=== PATIENT | male | born 1980 | race Caucasian/White ===

== ENCOUNTER 2018-04-05 13:17 | Emergency (ER) | payer MEDICAID ==
[2018-04-05 13:28] VITALS: BP 141/98
--- NOTE | 2018-04-05 13:41 | ED Physician Documentation ---
PD HPI HEADACHE - Stated complaint Stated Complaint: FACIAL SWELLING/MOUTH PX - Chief complaint Chief Complaint: Heent - History obtained from History obtained from: Patient - History of Present Illness Timing - onset: Other (Facial swelling and dental pain overlying the left mandible for about a week. He started Bactrim a few days ago which has not been effective. No fevers.) Review of Systems Constitutional: denies: Fever, Chills Nose: denies: Rhinorrhea / runny nose Throat: reports: Dental pain / toothache. denies: Sore throat Cardiac: denies: Chest pain / pressure, Palpitations Respiratory: denies: Dyspnea PD PAST MEDICAL HISTORY - Past Medical History Respiratory: Asthma Psych: Depression, Anxiety - Past Surgical History General: Appendectomy - Present Medications Home Medications: Ambulatory Orders Medication Instructions Recorded Confirmed Clindamycin HCl [Clindamycin 300MG 300 mg PO Q6H #40 capsule 04/05/18 CAP] Hydrocodone/Acetaminophen 1 - 2 each PO Q6H PRN #14 tablet 04/05/18 [Hydrocodon-Acetaminophen 5-325] Ibuprofen [Ibu] 800 04/05/18 Ondansetron Odt [Zofran] 4 mg TL Q6H PRN #10 tablet 04/05/18 Sertraline [Zoloft] 50 04/05/18 Sulfamethox/Trimeth 800/160 1 04/05/18 [Bactrim Ds] Zolpidem Tartrate [Ambien] 10 04/05/18 - Allergies Allergies/Adverse Reactions: Allergies Allergy/AdvReac Type Severity Reaction Status Date / Time No Known Drug Allergies Allergy Verified 04/05/18 13:28 - Social History Does the pt smoke?: Yes Smoking Status: Current every day smoker Does the pt drink ETOH?: Yes Does the pt have substance abuse?: No PD ED PE NORMAL - Vitals Vital signs reviewed: Yes - General General: Alert and oriented X 3, No acute distress - HEENT HEENT: Other (A few cavities and is tender over both the last molars on the left mandible and maxilla. There is no trismus but he does have mild facial swelling. No sublingual edema.) - Neck Neck: Supple, no meningeal sign, No adenopathy - Neuro Neuro: Alert and oriented X 3, Normal speech Results - Vitals Vitals: Vital Signs - 24 hr 04/05/18 13:25 Temperature 36.9 C Heart Rate 69 Respiratory 18 Rate Blood Pressure 141/98 H O2 Saturation 97 Oxygen O2 Source Room air Departure - Departure Disposition: 01 Home, Self Care Clinical Impression: Pain due to dental caries Condition: Good Record reviewed to determine appropriate education?: Yes Instructions: ED Tooth Pain Prescriptions: Clindamycin HCl [Clindamycin 300MG CAP] 300 mg PO Q6H #40 capsule Hydrocodone/Acetaminophen [Hydrocodon-Acetaminophen 5-325] 1 - 2 each PO Q6H PRN #14 tablet PRN Reason: pain Ondansetron Odt [Zofran] 4 mg TL Q6H PRN #10 tablet PRN Reason: Nausea / Vomiting Comments: It is very important that you follow-up with a dentist. When it comes to dental problems like yours, the emergency department can only offer a short-term solution to your long-term problem. A couple of low cost options for dental care include: [facility] in [place], calls [phone] for an appointment Or [facility] in [place], call [phone] for an appointment. Your blood pressure was elevated today on check into the emergency department. This does not mean that you have hypertension, it is a common phenomenon to come to the emergency department and have elevated blood pressure. I recommend that you see your primary care physician within the week to have it rechecked when you are feeling better. Do not drink or drive while taking narcotic pain medication. Note that many narcotic pain relievers also contain Tylenol/acetaminophen. Please ensure that your total dose of acetaminophen from all sources does not exceed 3 g (3000 mg) per day. You may get constipated while on this medication. Take a stool softener such as Colace twice a day while you are on it. Also add an [id number] laxative such as senna or MiraLAX on any day that you do not have a bowel movement. If you received a narcotic pain medication or sedative while in the emergency department, do not drive for the next 24 hours.
== END 2018-04-05 13:50 | disposition home or self-care (01) ==
LOC: ED 13:17
DX: K02.9 Dental caries, unspecified (principal); R03.0 Elevated blood-pressure reading, without diagnosis of hypertension; F17.200 Nicotine dependence, unspecified, uncomplicated
CPT/HCPCS: 99283

== ENCOUNTER 2018-09-13 14:22 | Outpatient (CLI) | payer MEDICAID ==
[2018-09-13 19:09] LABS: BASOPHILS % (AUTO) 0.4 %; EOSINOPHILS # (AUTO) 0.2 10^3/uL (0.0-0.7); EOSINOPHILS % (AUTO) 4.2 %; HGB - HEMOGLOBIN 16.6 g/dL (14.0-18.0); LYMPHOCYTES # (AUTO) 1.1 10^3/uL (1.5-3.5); LYMPHOCYTES % (AUTO) 21.2 %; MEAN CORPUSCULAR HEMOGLOBIN 30.2 pg (27.0-31.0); MEAN CORPUSCULAR HGB CONC 34.7 g/dL (32.0-36.0); MEAN CORPUSCULAR VOLUME 86.8 fL (80.0-94.0); MEAN PLATELET VOLUME 7.7 fL (7.4-11.4); MONOCYTES # (AUTO) 0.4 10^3/uL (0.0-1.0); NEUTROPHILS # (AUTO) 3.4 10^3/uL (1.5-6.6); NEUTROPHILS % (AUTO) 66.2 %; PLT - PLATELET COUNT 223 10^3/uL (130-450); RED CELL DISTRIBUTION WIDTH 12.9 % (12.0-15.0); WHITE BLOOD COUNT 5.2 x10^3/uL (4.8-10.8)
[2018-09-13 19:12] LABS: BUN - BLOOD UREA NITROGEN 13 mg/dL (6-20); CALCIUM 8.7 mg/dL (8.5-10.3); CARBON DIOXIDE - CO2 27 mmol/L (21-32); CHLORIDE 103 mmol/L (101-111); CHOL/HDL RATIO 5.3 (<5.0); CHOLESTEROL 197 mg/dL; CREATININE 0.9 mg/dL (0.6-1.2); GFR - MDRD 95 (>89); GLUCOSE 89 mg/dL (70-100); HDL CHOLESTEROL 37 mg/dL; LDL CHOLESTEROL,CALCULATED 82 mg/dL; LDL/HDL RATIO 2.2 (<3.6); SODIUM 138 mmol/L (135-145); VLDL CHOLESTEROL 78 mg/dL
== END 2018-09-13 23:59 | disposition home or self-care (01) ==
LOC: LAB.N 14:22
PROVIDERS: ATTEND Physician Assistant Medical
DX: J30.2 Other seasonal allergic rhinitis (principal); F41.8 Other specified anxiety disorders; J45.909 Unspecified asthma, uncomplicated; Z72.0 Tobacco use; G47.00 Insomnia, unspecified
CPT/HCPCS: 36415; 80048; 80061; 83721; 84443; 85025

== ENCOUNTER 2018-10-14 15:24 | Outpatient (CLI) | payer MEDICAID | END 2018-10-14 15:25 | disposition home or self-care (01) | LOC: SC 15:24 | PROVIDERS: ATTEND Internal Medicine Pulmonary Disease | DX: G47.10 Hypersomnia, unspecified (principal); G47.8 Other sleep disorders; R06.83 Snoring; G47.26 Circadian rhythm sleep disorder, shift work type | CPT/HCPCS: 99203; 99212 ==

== ENCOUNTER 2018-10-21 15:07 | Outpatient (CLI) | payer MEDICAID ==
[2018-10-21 19:07] LABS: CHOL/HDL RATIO 4.4 (<5.0); CHOLESTEROL 183 mg/dL; HDL CHOLESTEROL 42 mg/dL; LDL CHOLESTEROL,CALCULATED 115 mg/dL; LDL/HDL RATIO 2.7 (<3.6); VLDL CHOLESTEROL 26 mg/dL
== END 2018-10-21 23:59 | disposition home or self-care (01) ==
LOC: LAB.N 15:07
PROVIDERS: ATTEND Physician Assistant Medical
DX: E78.1 Pure hyperglyceridemia (principal)
CPT/HCPCS: 36415; 80061; 83721

== ENCOUNTER 2019-10-15 20:53 | Emergency (ER) | payer MEDICAID ==
--- NOTE | 2019-10-15 21:07 | ED Physician Documentation ---
PD HPI DYSPNEA - Stated complaint Stated Complaint: SHORT OF BREATH - Chief complaint Chief Complaint: Resp - History obtained from History obtained from: Patient - History of Present Illness Timing - onset: How many months ago (2) Timing - onset during: Light activity Timing - duration: Months (2) Timing - details: Gradual onset, Still present (more consistent the past several days), Waxing and waning Inciting event(s): No: Out of meds (taking Albuterol periodically without notable improvement with 1 or 2 puffs), URI (sine clear congestion c/w allergies.), Allergic rxn/anaphylaxis Improved by: Rest Worsened by: Exertion Associated symptoms: Wheezing. No: Fever, Cough, Hemoptysis, Chest pain / discomfort, Bilateral edema Similar symptoms before: Diagnosis (asthma) Recently seen: Not recently seen, Other (he is concerned about pneumonia and particularly COVID.) Review of Systems Constitutional: reports: Fatigue. denies: Fever, Chills Nose: denies: Rhinorrhea / runny nose, Congestion Throat: denies: Sore throat Respiratory: reports: Dyspnea, Cough, Wheezing GI: denies: Nausea, Vomiting, Diarrhea Musculoskeletal: denies: Extremity swelling Neurologic: denies: Generalized weakness, Near syncope Endocrine: denies: Weight loss PD PAST MEDICAL HISTORY - Past Medical History Respiratory: Asthma Psych: Depression, Anxiety - Past Surgical History General: Appendectomy - Present Medications Home Medications: Ambulatory Orders Medication Instructions Recorded Confirmed Clindamycin HCl [Clindamycin 300MG 300 mg PO Q6H #40 capsule 04/05/18 CAP] Hydrocodone/Acetaminophen 1 - 2 each PO Q6H PRN #14 tablet 04/05/18 [Hydrocodon-Acetaminophen 5-325] Ibuprofen [Ibu] 800 04/05/18 Ondansetron Odt [Zofran] 4 mg TL Q6H PRN #10 tablet 04/05/18 Sertraline [Zoloft] 50 04/05/18 Sulfamethox/Trimeth 800/160 1 04/05/18 [Bactrim Ds] Zolpidem Tartrate [Ambien] 10 04/05/18 Albuterol Sulfate [Albuterol 2 puffs IH QID #1 hfa.aer.ad 10/15/19 Sulfate Hfa] Cetirizine [ZyrTEC] 10 mg PO DAILY #15 tablet 10/15/19 dexAMETHasone [Decadron] 4 mg PO DAILY #7 tablet 10/15/19 - Allergies Allergies/Adverse Reactions: Allergies Allergy/AdvReac Type Severity Reaction Status Date / Time No Known Drug Allergies Allergy Verified 10/15/19 21:00 - Social History Does the pt smoke?: Yes Smoking Status: Current every day smoker Does the pt drink ETOH?: Yes Does the pt have substance abuse?: No PD ED PE NORMAL - Vitals Vital signs reviewed: Yes - General General: Alert and oriented X 3, No acute distress, Well developed/nourished - HEENT HEENT: Moist mucous membranes, Pharynx benign - Neck Neck: Supple, no meningeal sign, No adenopathy - Cardiac Cardiac: RRR, No murmur - Respiratory Respiratory: No: Clear bilaterally (mild decreased exp phase. No overt wheezing. No coarse sounds. ) - Abdomen Abdomen: Soft, Non tender - Back Back: No CVA TTP - Derm Derm: Normal color, Warm and dry Results - Vitals Vitals: Vital Signs - 24 hr 10/15/19 10/15/19 20:57 23:14 Temperature 36.9 C Heart Rate 78 80 Respiratory 16 16 Rate Blood Pressure 170/78 H 145/80 H O2 Saturation 98 99 Oxygen O2 Source Room air - Labs Labs: Laboratory Tests 10/15/19 10/15/19 10/15/19 21:56 21:56 21:56 WBC 5.0 RBC 4.92 Hgb 13.2 L Hct 38.8 L MCV 78.9 L MCH 26.8 L MCHC 34.0 RDW 12.4 Plt Count 199 MPV 8.9 Neut # (Auto) 3.6 Lymph # (Auto) 0.9 L [place] # (Auto) 0.4 Eos # (Auto) 0.1 Baso # (Auto) 0.0 Absolute Nucleated RBC 0.00 Nucleated RBC % 0.0 Sodium 139 Potassium 4.0 Chloride 107 Carbon Dioxide 24 Anion Gap 8.0 BUN 10 Creatinine 1.2 Estimated GFR (MDRD) 68 L Glucose 103 H Calcium 8.5 Total Bilirubin 0.6 AST 18 ALT 17 Alkaline Phosphatase 62 Troponin I High Sens 2.4 B-Natriuretic Peptide Total Protein 6.9 Albumin 4.1 Globulin 2.8 Albumin/Globulin Ratio 1.5 Lipase 42 10/15/19 21:56 WBC RBC Hgb Hct MCV MCH MCHC RDW Plt Count MPV Neut # (Auto) Lymph # (Auto) [place] # (Auto) Eos # (Auto) Baso # (Auto) Absolute Nucleated RBC Nucleated RBC % Sodium Potassium Chloride Carbon Dioxide Anion Gap BUN Creatinine Estimated GFR (MDRD) Glucose Calcium Total Bilirubin AST ALT Alkaline Phosphatase Troponin I High Sens B-Natriuretic Peptide 9 Total Protein Albumin Globulin Albumin/Globulin Ratio Lipase - Rads (name of study) chest xray Radiology: Prelim report reviewed (no acute process), See rad report PD MEDICAL DECISION MAKING - ED course Complexity details: considered differential (likely exac of asthma but he is having some general weakness and dyspnea at rest too, so can check CBC, lytes, BNP to ensure not other cause. ), d/w patient Departure - Departure Disposition: Home, Self Care Clinical Impression: Dyspnea Qualifiers: Dyspnea type: shortness of breath Qualified Code(s): R06.02 - Shortness of breath Asthma Qualifiers: Asthma severity: mild Asthma persistence: intermittent Asthma complication type: with acute exacerbation Qualified Code(s): J45.21 - Mild intermittent asthma with (acute) exacerbation Condition: Stable Record reviewed to determine appropriate education?: Yes Instructions: ED Reactive Airway Disease, ED Dyspnea Shortness of Breath Prescriptions: Albuterol Sulfate [Albuterol Sulfate Hfa] 2 puffs IH QID #1 hfa.aer.ad dexAMETHasone [Decadron] 4 mg PO DAILY #7 tablet Cetirizine [ZyrTEC] 10 mg PO DAILY #15 tablet Comments: Your chest x-ray and blood tests and EKG appear normal. No signs of pneumonia, anemia or heart failure. I presume this is a environmental allergies and exacerbation of your asthma. Use the albuterol inhaler 2 puffs to 3 puffs 4 times a day for the next several days to week and then as needed. Also take Decadron oral steroid daily for a week to decrease inflammation of the airways. Cetirizine antihistamine daily for allergies. Recheck if not improving well over the next several days return sooner if worsening. Discharge Date/Time: 10/15/19 23:15
[2019-10-15] MEDS ORDERED: CETIRIZINE 10 MG TABLET PO STA (21:48)
[2019-10-15] MEDS ORDERED: CHERRY SYRUP 10 ML UDC PO ONE (21:48)
[2019-10-15] MEDS ORDERED: DEXAMETHASONE 10 MG/ML VIAL PO STA (21:48)
[2019-10-15] MEDS ORDERED: diphenhydrAMINE 25 MG CAPSULE PO STA (21:48)
[2019-10-15 21:59] LABS: BASOPHILS % (AUTO) 0.4 %; EOSINOPHILS # (AUTO) 0.1 10^3/uL (0.0-0.7); EOSINOPHILS % (AUTO) 2.6 %; HGB - HEMOGLOBIN 13.2 g/dL (14.0-18.0); LYMPHOCYTES # (AUTO) 0.9 10^3/uL (1.5-3.5); LYMPHOCYTES % (AUTO) 18.7 %; MEAN CORPUSCULAR HEMOGLOBIN 26.8 pg (27.0-31.0); MEAN CORPUSCULAR VOLUME 78.9 fL (80.0-94.0); MEAN PLATELET VOLUME 8.9 fL (7.4-11.4); MONOCYTES # (AUTO) 0.4 10^3/uL (0.0-1.0); MONOCYTES % (AUTO) 7.5 %; NEUTROPHILS # (AUTO) 3.6 10^3/uL (1.5-6.6); NEUTROPHILS % (AUTO) 70.4 %; PLT - PLATELET COUNT 199 10^3/uL (130-450); RED BLOOD COUNT 4.92 10^6/uL (4.70-6.10); RED CELL DISTRIBUTION WIDTH 12.4 % (12.0-15.0)
[2019-10-15 22:16] LABS: ALBUMIN 4.1 g/dL (3.2-5.5); ALBUMIN/GLOBULIN RATIO 1.5 (1.0-2.2); BILIRUBIN,TOTAL 0.6 mg/dL (0.2-1.0); CALCIUM 8.5 mg/dL (8.5-10.3); CREATININE 1.2 mg/dL (0.6-1.2); TOTAL PROTEIN 6.9 g/dL (6.7-8.2)
[2019-10-15 23:15] VITALS: BP 145/80
--- NOTE | 2019-10-16 08:45 | XRAY Report ---
PROCEDURE: Chest 1 View X-Ray INDICATIONS: dyspnea/exertional tightness TECHNIQUE: One view of the chest was acquired. COMPARISON: None FINDINGS: Surgical changes and devices: None. Lungs and pleura: No pleural effusions or pneumothorax. Lungs are clear. Mediastinum: Mediastinal contours appear normal. Heart size is normal. Bones and chest wall: No suspicious bony lesions. Overlying soft tissues appear unremarkable. IMPRESSION: 1. No acute pulmonary process. Reviewed by: Amy Smyth MD on 10/16/2019 8:43 AM PDT Approved by: Amy Smyth MD on 10/16/2019 8:43 AM PDT Station ID: [id number]
== END 2019-10-15 23:15 | disposition home or self-care (01) ==
LOC: ED 20:53
DX: J45.21 Mild intermittent asthma with (acute) exacerbation (principal); F17.200 Nicotine dependence, unspecified, uncomplicated
CPT/HCPCS: 36415; 71045; 80053; 83690; 83880; 84484; 85025; 99284; A9270

== ENCOUNTER 2021-06-26 14:01 | Observation (INO) | payer MEDICAID ==
[2021-06-26 14:34] LABS: BASOPHILS % (AUTO) 0.4 %; EOSINOPHILS # (AUTO) 0.1 10^3/uL (0.0-0.7); HCT - HEMATOCRIT 25.8 % (42.0-52.0); LYMPHOCYTES # (AUTO) 0.8 10^3/uL (1.5-3.5); LYMPHOCYTES % (AUTO) 16.9 %; MEAN CORPUSCULAR HEMOGLOBIN 16.9 pg (27.0-31.0); MEAN CORPUSCULAR HGB CONC 26.7 g/dL (32.0-36.0); MEAN CORPUSCULAR VOLUME 63.1 fL (80.0-94.0); MEAN PLATELET VOLUME 8.3 fL (7.4-11.4); MONOCYTES # (AUTO) 0.4 10^3/uL (0.0-1.0); MONOCYTES % (AUTO) 9.1 %; NEUTROPHILS # (AUTO) 3.2 10^3/uL (1.5-6.6); NEUTROPHILS % (AUTO) 71.2 %; PLT - PLATELET COUNT 214 10^3/uL (130-450); RED BLOOD COUNT 4.09 10^6/uL (4.70-6.10); RED CELL DISTRIBUTION WIDTH 17.9 % (12.0-15.0); WHITE BLOOD COUNT 4.5 x10^3/uL (4.8-10.8)
[2021-06-26 14:38] LABS: HGB - HEMOGLOBIN 6.9 g/dL (14.0-18.0)
--- NOTE | 2021-06-26 14:45 | XRAY Report ---
PROCEDURE: Chest 1 View X-Ray INDICATIONS: chest pain TECHNIQUE: One view of the chest was acquired. COMPARISON: 10/15/2019 FINDINGS: Surgical changes and devices: None. Lungs and pleura: No pleural effusions or pneumothorax. Lungs are clear. Mediastinum: Mediastinal contours appear normal. Heart size is normal. Bones and chest wall: No suspicious bony lesions. Overlying soft tissues appear unremarkable. IMPRESSION: No evidence acute pulmonary process. Reviewed by: Kervin Monahan MD on 06/26/2021 1:43 PM [facility] Approved by: Kervin Monahan MD on 06/26/2021 1:43 PM [facility] Station ID: [id number]
[2021-06-26 14:49] LABS: ALBUMIN 4.5 g/dL (3.2-5.5); ALBUMIN/GLOBULIN RATIO 1.5 (1.0-2.2); BILIRUBIN,TOTAL 0.8 mg/dL (0.2-1.0); CALCIUM 8.8 mg/dL (8.5-10.3); CREATININE 1.1 mg/dL (0.6-1.2); POTASSIUM 3.9 mmol/L (3.5-5.0); TOTAL PROTEIN 7.5 g/dL (6.7-8.2)
--- NOTE | 2021-06-26 14:50 | ED Physician Documentation ---
PD HPI DYSPNEA - Stated complaint Stated Complaint: CHEST PX, SOA - Chief complaint Chief Complaint: Cardiac - History obtained from History obtained from: Patient - History of Present Illness Timing - onset: How many weeks ago (3) Timing - onset during: Light activity Timing - duration: Weeks (3) Timing - details: Gradual onset, Still present Inciting event(s): No: Out of meds, URI, Allergic rxn/anaphylaxis, Exercise, Exposure (ie smoke), FB / choking, Immobilization/travel, Emotional event Improved by: Rest Worsened by: Exertion Associated symptoms: Chest pain / discomfort. No: Fever, Cough, Hemoptysis, Wheezing, Palpitations, Diaphoresis, Bilateral edema, Unilateral edema Similar symptoms before: Has not had sx before Recently seen: Not recently seen - Additional information Additional information: Previously well 41-year-old male reports the emergency department that he has developed exertional dyspnea over the past month. He indicates that he is having trouble even taking garbage out. He notes he is short of breath and has to sit and rest for a bit before he can go on again. He states this happens each and every time that he exerts himself. He denies any wheezing associated with this and he has not been sick. He does have a history of asthma and he did not find that his inhaler helped all that much. He denies any excessive confinement or swelling to his legs. He has not had this issue previously. Later in the visit the patient indicates that about a month ago he developed some significant bleeding from hemorrhoids that filled the toilet over and over for about a week. He states that he got lightheaded and dizzy associated with that. Since then he has continued to have periodic bouts of blood per rectum. Review of Systems Constitutional: reports: Fatigue. denies: Fever, Chills, Myalgias Eyes: denies: Decreased vision Ears: denies: Ear pain Nose: denies: Rhinorrhea / runny nose, Congestion Throat: denies: Sore throat Cardiac: reports: Chest pain / pressure. denies: Palpitations, Pedal edema, Calf pain Respiratory: reports: Dyspnea. denies: Cough, Wheezing GI: reports: Constipation, Bloody / black stool. denies: Abdominal Pain, Nausea, Vomiting, Diarrhea : denies: Dysuria, Frequency Skin: denies: Rash Musculoskeletal: denies: Neck pain, Back pain, Extremity pain PD PAST MEDICAL HISTORY - Past Medical History Past Medical History: Yes Respiratory: Asthma Psych: Depression, Anxiety - Past Surgical History Past Surgical History: Yes General: Appendectomy - Present Medications Home Medications: Ambulatory Orders Medication Instructions Recorded Confirmed Sertraline [Zoloft] 50 mg PO DAILY 04/05/18 06/26/21 Albuterol Sulfate [Albuterol 2 puffs INH QID 06/26/21 06/26/21 Sulfate Hfa] - Allergies Allergies/Adverse Reactions: Allergies Allergy/AdvReac Type Severity Reaction Status Date / Time No Known Drug Allergies Allergy Verified 06/26/21 14:07 - Social History Does the pt smoke?: Yes Smoking Status: Current every day smoker Does the pt drink ETOH?: Yes Does the pt have substance abuse?: No - Immunizations Immunizations are current?: Yes - POLST Patient has POLST: No PD ED PE NORMAL - Vitals Vital signs reviewed: Yes (hypertensive ) - General General: Alert and oriented X 3, No acute distress, Well developed/nourished - HEENT HEENT: Atraumatic, PERRL, EOMI, Other (pale lips are appreciated after the patient removes his mask. ) - Neck Neck: Supple, no meningeal sign, No bony TTP - Cardiac Cardiac: RRR, No murmur, Other (heart rate is rapid over 90 at rest. ) - Respiratory Respiratory: No respiratory distress, Clear bilaterally, Other (no chest wall tenderness) - Abdomen Abdomen: Soft, Non tender - Rectal Rectal: Other (Large external hemorrhoidal tags are present without inflammation or fullness. Internal hemorrhoids are present and are full and nontender. There is no blood or stool in the vault.) - Back Back: No CVA TTP, No spinal TTP - Derm Derm: Normal color, Warm and dry, No rash - Extremities Extremities: No deformity, No edema - Neuro Neuro: Alert and oriented X 3, front desk administrator 2-12 intact, No motor deficit, No sensory deficit, Normal speech Eye Opening: Spontaneous Motor: Obeys Commands Verbal: Oriented GCS Score: 15 - Psych Psych: Normal mood, Normal affect Results - Vitals Vitals: Vital Signs - 24 hr 06/26/21 14:04 Temperature 36.7 C Heart Rate 95 Respiratory 16 Rate Blood Pressure 152/66 H O2 Saturation 100 Oxygen O2 Source Room air - Labs Labs: Laboratory Tests 06/26/21 06/26/21 06/26/21 14:26 14:26 14:26 WBC 4.5 L RBC 4.09 L Hgb 6.9 L* Hct 25.8 L MCV 63.1 L MCH 16.9 L MCHC 26.7 L RDW 17.9 H Plt Count 214 MPV 8.3 Neut # (Auto) 3.2 Lymph # (Auto) 0.8 L [place] # (Auto) 0.4 Eos # (Auto) 0.1 Baso # (Auto) 0.0 Absolute Nucleated RBC 0.00 Nucleated RBC % 0.0 D-Dimer 231.9 Sodium 137 Potassium 3.9 Chloride 103 Carbon Dioxide 25 Anion Gap 9.0 BUN 14 Creatinine 1.1 Estimated GFR (MDRD) 75 L Glucose 113 H Calcium 8.8 Total Bilirubin 0.8 AST 16 ALT 19 Alkaline Phosphatase 69 Troponin I High Sens B-Natriuretic Peptide Total Protein 7.5 Albumin 4.5 Globulin 3.0 Albumin/Globulin Ratio 1.5 Lipase 39 06/26/21 06/26/21 14:26 14:26 WBC RBC Hgb Hct MCV MCH MCHC RDW Plt Count MPV Neut # (Auto) Lymph # (Auto) [place] # (Auto) Eos # (Auto) Baso # (Auto) Absolute Nucleated RBC Nucleated RBC % D-Dimer Sodium Potassium Chloride Carbon Dioxide Anion Gap BUN Creatinine Estimated GFR (MDRD) Glucose Calcium Total Bilirubin AST ALT Alkaline Phosphatase Troponin I High Sens 3.6 B-Natriuretic Peptide 18 Total Protein Albumin Globulin Albumin/Globulin Ratio Lipase - Rads (name of study) chest Radiology: Prelim report reviewed (Impression: No evident acute pulmonary process.), EMP read indepedently, See rad report PD MEDICAL DECISION MAKING - ED course Complexity details: reviewed results, re-evaluated patient, considered differential, d/w patient ED course: 41-year-old male who presents to the emergency department with exertional dyspnea is found to be significantly anemic on evaluation of his blood counts. He does have a microcytic anemia with an elevated RDW consistent with both acute and chronic bleeding. On examination he has full internal hemorrhoids and there is no blood or stool in the vault. The patient has symptomatic anemia with a hemoglobin of 6.9 and transfusion is indicated. He has ongoing blood loss with a suspected etiology as hemorrhoids. The amount of blood he has lost is significant and the etiology at this point is not known. Departure - Departure Disposition: ED Place in Observation Clinical Impression: Symptomatic anemia GI bleeding Qualifiers: GI bleed type/associated pathology: anorectal hemorrhage Qualified Code(s): K62.5 - Hemorrhage of anus and rectum
[2021-06-26] MEDS ORDERED: SODIUM CHLORIDE FLUSH 0.9% 10 ML SYRINGE IVP PRN (15:45)
[2021-06-26] MEDS ORDERED: ONDANSETRON ODT 4 MG TABLET TL PRN (15:45)
[2021-06-26] MEDS ORDERED: ACETAMINOPHEN 325 MG TABLET PO PRN (15:45)
[2021-06-26] MEDS ORDERED: PROCHLORPERAZINE 10 MG/2 ML VIAL IVP PRN (15:45)
[2021-06-26] MEDS ORDERED: oxyCODONE 5 MG TABLET PO PRN (15:45)
[2021-06-26] MEDS ORDERED: ONDANSETRON 4 MG/2 ML VIAL IVP PRN (15:45)
--- NOTE | 2021-06-26 15:55 | HISTORY & PHYSICAL EXAMINATION ---
Chief Complaint - Chief Complaint Chief Complaint: shortness of breath History of Present Illness - Admitted From Admitted From:: home via ER - History Obtained From Records Reviewed: [facility] History obtained from: patient and Dr. Silva Exam Limitations: none - History of Present Illness HPI Comment/Other: This is a 41-year-old white male who has been seen by Dr. Michelle Whatley for asthma and anxiety once that presents to the emergency room with severe dyspnea on exertion. He said has been getting steadily worse over the last few weeks but over the last week he has maxi dyspnea walking just across the room. There is no antecedent URI complaints. No chest congestion. No wheezing. Inhalers are not making it better. He was seen by the emergency room provider and blood pressure is 152/66. Heart rate is 95. He is 100% on room air. Has a negative physical exam. When the lab work came back the patient's hemoglobin is 6.9. At that point the per emergency room provider spoke to the patient again and the patient shared with the ER provider that he filled the toilet bowl with blood about a month ago. He did call his PCP 05/17/21 and told them he was having rectal bleeding for a week. they advised the [facility] but he did not have the insurance needed so he couldn't go to the [facility]. Advised to go to the ER that day but by then he was so frustrated and disgusted with trying to access our health care system he gave up. In looking at his past labs, he had a hemoglobin of 16.6 in August 2018. He was seen in the emergency room for shortness of breath and asthma in September 2019 and his hemoglobin was 13.2. He was last seen by his primary care provider in December 2019. He does not have a history of abdominal pain, fever, sweats, diarrhea (bloody or otherwise). He has no history of weight loss. In July 2018 he was 186 pounds. By December 2019 he was 216 pounds. He denies any epigastric discomfort. He does not take any nonsteroidals on a regular basis. He denies any alcohol abuse. There is no family history of inflammatory bowel disease or peptic ulcer disease. He does tell me that he has been having intermittent bright red blood per rectum that was painless for close to 15 years. He initially said 20 but then he corrected himself and said more like 15. He is always told himself that it was "hemorrhoids" so he never felt like he needed to be seen for this. Because of his panic disorder he will talk himself into dire diagnoses of bleeding ulcers, cancer, and so he would not want to come in. The patient is now placed in observation for transfusion of blood. At this [facility] we do not have surgical services installation and repair technician for the OR since we are on divert for OR cases. As such the patient will be transfused, and we will refer him to outpatient work-up for upper and lower endoscopy. History - Past Medical History Respiratory: reports: Asthma, Other (snoring and insomnia. Sleep study Referral September 2018. Ins won't pay so no followup) GI: reports: Other (bloody stool for 15 years) HEENT: reports: Other (Seasonal allergies with his asthma) Psych: reports: Depression, Anxiety - Past Surgical History General: reports: Appendectomy (2000) HEENT: reports: Other (Tooth extraction due to infection) - Family & Social History Family History Comment/Other: Mom is alive and has a history of coronary artery disease. She had a heart attack in her 50s. Also has SLE. Dad is alive and healthy. May have anxiety. Siblings are healthy x brother w PTSD, anxiety, depression. He does not have any children Living arrangement: At home Living Situation: With spouse/s.o. Social History Notes: He is a former smoker. 1/2-1 ppd for 22 years. 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 Lives with his fiancee in [place] and has not established himself with a PCP because he just hasn't gotten around to it. Alcohol is 1-6/week. Moved from [place], [place] in 2019 - POLST Patient has POLST: No Meds/Allgy - Home Medications Home Medications: Ambulatory Orders Medication Instructions Recorded Confirmed Sertraline [Zoloft] 50 mg PO DAILY 04/05/18 06/26/21 Albuterol Sulfate [Albuterol 2 puffs INH QID 06/26/21 06/26/21 Sulfate Hfa] - Allergies Allergies/Adverse Reactions: Allergies Allergy/AdvReac Type Severity Reaction Status Date / Time No Known Drug Allergies Allergy Verified 06/26/21 14:07 Review of Systems - Constitutional Constitutional: denies: Fatigue, Fever, Chills, Malaise, Weakness, Poor appetite, Diaphoresis - Eyes Eyes: denies: Pain, Irritation, Amaurosis, Vision loss - Ears, Nose & Throat Ears, Nose & Throat: denies: Ear pain, Hearing loss, Hearing aids, Tinnitus, Vertigo, Sore throat, Hoarseness - Cardiovascular Cariovascular: reports: Exertional dyspnea, Decr. exercise tolerance. denies: Irregular heart rate, Palpitations, Chest pain, Edema, Syncope - Respiratory Respiratory: reports: SOB with exertion. denies: Cough, Sputum production, Wheezing, Snoring, SOB at rest - Gastrointestinal Gastrointestinal: reports: Constipation (severe a week ago and almost passed out with pushing), Rectal bleeding (for >15 yrs), Bloody stools (for >15 yrs), Vomiting (once last week when he was constipated). denies: Abdominal pain, Abdominal distention, Diarrhea, Nausea, Maxi blood emesis, Coffee grounds emesis, Reflux/heartburn, Poor appetite - Genitourinary Genitourinary: denies: Dysuria, Frequency, Urgency, Hematuria, Incontinence, Flank pain - Musculoskeletal Musculoskeletal: reports: Back pain. denies: Muscle pain, Muscle aches, Stiffness, Joint pain - Integumentary Integumentary: reports: Rash (flaking, off and on for yrs, scratches bc itches so leaves behind excoriation), Pruritis - Neurological Neurological: denies: General weakness, Focal weakness, Headache, Dizziness, Numbness, Memory problems - Psychiatric Psychiatric: reports: Depression, Anxiety. denies: Suicidal, Delusions, Hallucinations, Homicidal - Endocrine Endocrine: denies: Polyuria, Polydypsia, Polyphagia, Intolerance to cold - Hematologic/Lymphatic Hematologic/Lymphatic: reports: Anemia. denies: Bruising, Petechiae, Blood clots, Lymphadenopathy, Bleeding tendencies Prior Level of Functionality: Completely independent with activities of daily living. Pays bills, drives a car Exam - Vital Signs Reviewed Vital Signs: Yes Vital Signs: Vital Signs x48h Temp Pulse Resp BP Pulse Ox 06/26/21 14:04 36.7 C 95 16 152/66 H 100 - Physical Exam General Appearance: positive: No acute distress, Alert, Other (Moderately overweight young white male who looks stated age, putnam and mustache, well- nourished well-developed) Eyes Bilateral: positive: PERRL, EOMI ENT: positive: Pharynx nml Neck: positive: No JVD. negative: Stiff neck Respiratory: positive: No respiratory distress. negative: Wheezes, Rales, Rhonchi Cardiovascular: positive: Regular rate & rhythm. negative: Systolic murmur, Gallop/S4, Friction rub Peripheral Pulses: positive: 1+ Abdomen: positive: Non-tender, No organomegaly, Nml bowel sounds, No distention, Other (Large obese abdominal pannus) Skin: positive: Warm, Dry, Other (Excoriations on forearms, elbows. Bilateral lower quadrants of abdomen. Over his calves and shins. He is basically scratching wherever he can reach. He is scratching due to pruritus and some type of "rash" that will not go away. At this time there is no rash that I can see other than excoriatio) Extremities: positive: Full ROM, No pedal edema Neurologic/Psychiatric: positive: Oriented x3, CN's nml (2-12), Motor nml Conclusion/Plan - Problem List (1) Dyspnea Conclusion/Plan: Due to acute blood loss anemia. He is not hypoxic. However his cardiac output is probably diminished. Plan: Observation status See problem #2 Qualifiers: Dyspnea type: shortness of breath Qualified Code(s): R06.02 - Shortness of breath; R06.00 - Dyspnea, unspecified; R06.01 - Orthopnea (2) Symptomatic anemia Conclusion/Plan: Ended patient has had episodes of rectal bleeding several times this last month. No previous history of inflammatory bowel disease. No indication on subjective questioning or review of systems that he has peptic ulcer disease and he is does not drink excessively nor does he take nonsteroidals. However the differential diagnosis still remains as peptic ulcer disease versus inflammatory bowel disease versus internal hemorrhoids. Dr. Silva did feel large internal hemorrhoids on physical exam. Plan: Type and cross 1 unit and transfuse. Recheck hemoglobin and see if needs a second. Will need outpatient work-up. (3) Depression with anxiety Conclusion/Plan: Patient is on sertraline. He did ask his primary care provider for benzodiazepine and that request was declined with his last visit December 2019.He is asking for Ativan or Valium again tonight. I explained to him that I will declined that offer at this time. He says that he is "really freaking out about all of this". I have asked him to please establish himself with a primary care provider that is a routine/permanent provider they can work with him in establishing stable medication patterns. Benzodiazepines are very addictive and while they can be used judiciously, they are not used as normal treatment for anxiety disorder anymore. I would also recommend that he be with cognitive behavioral therapy from a referral from a PCP. He does know he will follow through with that. He says that he has people in his life that he "talks to". He uses certain coping techniques and he is a spiritual person with his belief in God. He does acknowledge that this is not working for him right now and he hopes to get better. (4) Insomnia Conclusion/Plan: Most likely due to his anxiety and depression. He describes his mind racing at night. Again would recommend cognitive behavioral therapy, a routine primary care provider follow-up with serotonin reuptake inhibitors. Should probably follow through with that sleep study to see if he has restless leg syndrome as well. He does not describe snoring. At this time he says that insurance does not want to pay for a sleep study and that is why he did not follow through. If he can get a new referral and the insurance will pay for sleep study he will do it. Qualifiers: Insomnia type: due to other mental disorder Qualified Code(s): F51.05 - Insomnia due to other mental disorder; F99 - Mental disorder, not otherwise specified (5) Multiple excoriations Conclusion/Plan: Associated with the rash. However the rash is not present today and I only see excoriations. Once he establishes himself with a primary care provider, consider referral for dermatology when the rash is present. - Lab Results Lab results reviewed: Yes Fish Bones: 06/26/21 14:26 06/26/21 14:26 - Diagnostic Imaging Results Diagnostic Imaging Results: positive: Final report reviewed Diagnostic Imaging Results Comments: Chest x-ray without any evidence of acute cardiopulmonary process - EKG Results EKG Interpreted Independently: No Core Measures - Anticipated LOS I expect patient to be DC'd or transferred within 96 hours.: Yes - DVT/VTE - Prophylaxis VTE/DVT Device ordered at admit?: Yes
[2021-06-26] MEDS ORDERED: SODIUM CHLORIDE 0.9% 1,000 ML IV SCH (16:00)
[2021-06-26] MEDS ORDERED: ALBUTEROL NEB 2.5 MG/3 ML INH PRN (16:25)
[2021-06-26] MEDS: SODIUM CHLORIDE FLUSH 0.9% 10 ML SYRINGE IVP SCH (16:55)
[2021-06-26 17:04] LABS: B. PARAPERTUSSIS- RESP PCR PAN NOT DETECTED; B. PERTUSSIS- RESP PCR PANEL NOT DETECTED; C. PNEUMONIAE- RESP PCR PANEL NOT DETECTED; CORONAVIRUS 229E-RESP PCR NOT DETECTED; CORONAVIRUS HKU1-RESP PCR NOT DETECTED; CORONAVIRUS NL63-RESP PCR NOT DETECTED; CORONAVIRUS OC43-RESP PCR NOT DETECTED; HUMAN METAPNEUMOVIRUS NOT DETECTED; INFLUENZA A- RESP PCR PANEL NOT DETECTED; INFLUENZA B - RESP PCR PANEL NOT DETECTED; M. PNEUMONIAE- RESP PCR PANEL NOT DETECTED; PARAINFLUENZA VIRUS 1 NOT DETECTED; PARAINFLUENZA VIRUS 2 NOT DETECTED; PARAINFLUENZA VIRUS 3 NOT DETECTED; PARAINFLUENZA VIRUS 4 NOT DETECTED; RHINOVIRUS/ENTEROVIRUS NOT DETECTED; RSV- RESP PCR PANEL NOT DETECTED; SARS-CoV-2 -RESP PCR PANEL NOT DETECTED
[2021-06-26] MEDS ORDERED: ZOLPIDEM 5 MG TABLET PO PRN (22:01)
[2021-06-26 23:44] LABS: HCT - HEMATOCRIT 28.6 % (42.0-52.0); MEAN CORPUSCULAR VOLUME 64.4 fL (80.0-94.0); MEAN PLATELET VOLUME 8.5 fL (7.4-11.4); RED BLOOD COUNT 4.44 10^6/uL (4.70-6.10); RED CELL DISTRIBUTION WIDTH 19.6 % (12.0-15.0); WHITE BLOOD COUNT 6.2 x10^3/uL (4.8-10.8)
[2021-06-27 05:08] LABS: BASOPHILS % (AUTO) 0.5 %; EOSINOPHILS # (AUTO) 0.1 10^3/uL (0.0-0.7); EOSINOPHILS % (AUTO) 2.4 %; HCT - HEMATOCRIT 27.3 % (42.0-52.0); HGB - HEMOGLOBIN 7.7 g/dL (14.0-18.0); LYMPHOCYTES # (AUTO) 1.1 10^3/uL (1.5-3.5); LYMPHOCYTES % (AUTO) 18.4 %; MEAN CORPUSCULAR HEMOGLOBIN 18.1 pg (27.0-31.0); MEAN CORPUSCULAR HGB CONC 28.2 g/dL (32.0-36.0); MEAN CORPUSCULAR VOLUME 64.2 fL (80.0-94.0); MEAN PLATELET VOLUME 8.8 fL (7.4-11.4); MONOCYTES # (AUTO) 0.5 10^3/uL (0.0-1.0); MONOCYTES % (AUTO) 8.9 %; NEUTROPHILS % (AUTO) 69.3 %; PLT - PLATELET COUNT 240 10^3/uL (130-450); RED BLOOD COUNT 4.25 10^6/uL (4.70-6.10); RED CELL DISTRIBUTION WIDTH 19.4 % (12.0-15.0); SLIDE REVIEW? Indicated; WHITE BLOOD COUNT 5.8 x10^3/uL (4.8-10.8)
[2021-06-27 05:32] LABS: PLATELET ESTIMATE, MANUAL NORMAL (130-450,000) (NORMAL); PLATELET MORPHOLOGY NORMAL APPEARANCE (NORMAL); WBC MORPHOLOGY (MULTIPLE) NORMAL APPEARANCE (NORMAL)
[2021-06-27] MEDS: SODIUM CHLORIDE FLUSH 0.9% 10 ML SYRINGE IVP SCH ×2 (06:27→09:07)
[2021-06-27] MEDS ORDERED: FERROUS SULFATE 325 MG TABLET PO SCH (08:00)
[2021-06-27] MEDS ORDERED: SERTRALINE 50 MG TABLET PO SCH (09:00)
--- NOTE | 2021-06-27 10:21 | PHARMACY PROGRESS NOTE ---
- Best Possible Medication History Admit Date and Time: 06/26/21 1545 Processed by: Nursing Medication History completed: Yes As the person ultimately responsible for medication therapy, providers are able to order a medication from an existing home medication list in [facility] via the "Reconcile Routine" prior to Confirmation of that medication by customer support associate. Such practice is discouraged except when the physician, in their clinical judgment, deems that a medical need exists for a medication without regard to previous use.
--- NOTE | 2021-06-27 10:45 | DISCHARGE SUMMARY ---
Discharge Summary Admit Date: 06/26/21 Discharge Date: 06/27/21 Discharging Provider: Marlee Burnett MD Primary Care Provider: none Code Status: Attempt Resuscitation Condition at Discharge: Fair Discharge Disposition: 01 Home, Self Care - DIAGNOSES Discharge Diagnoses with Status of Each Condition: 1. Dyspnea without hypoxia 2. Symptomatic anemia 3. Depression with anxiety 4. Insomnia 5. Multiple excoriations 6. Lack of primary care follow-up - HPI History of Present Illness: This is a 41-year-old white male who has been seen by Dr. Michelle Whatley for asthma and anxiety once that presents to the emergency room with severe dyspnea on exertion. He said has been getting steadily worse over the last few weeks but over the last week he has maxi dyspnea walking just across the room. There is no antecedent URI complaints. No chest congestion. No wheezing. Inhalers are not making it better. He was seen by the emergency room provider and blood pressure is 152/66. Heart rate is 95. He is 100% on room air. Has a negative physical exam. When the lab work came back the patient's hemoglobin is 6.9. At that point the per emergency room provider spoke to the patient again and the patient shared with the ER provider that he filled the toilet bowl with blood about a month ago. He did call his PCP 05/17/21 and told them he was having rectal bleeding for a week. they advised the [facility] but he did not have the insurance needed so he couldn't go to the [facility]. Advised to go to the ER that day but by then he was so frustrated and disgusted with trying to access our health care system he gave up. In looking at his past labs, he had a hemoglobin of 16.6 in August 2018. He was seen in the emergency room for shortness of breath and asthma in September 2019 and his hemoglobin was 13.2. He was last seen by his primary care provider in December 2019. He does not have a history of abdominal pain, fever, sweats, diarrhea (bloody or otherwise). He has no history of weight loss. In July 2018 he was 186 pounds. By December 2019 he was 216 pounds. He denies any epigastric discomfort. He does not take any nonsteroidals on a regular basis. He denies any alcohol abuse. There is no family history of inflammatory bowel disease or peptic ulcer disease. He does tell me that he has been having intermittent bright red blood per rectum that was painless for close to 15 years. He initially said 20 but then he corrected himself and said more like 15. He is always told himself that it was "hemorrhoids" so he never felt like he needed to be seen for this. Because of his panic disorder he will talk himself into dire diagnoses of bleeding ulcers, cancer, and so he would not want to come in. The patient is now placed in observation for transfusion of blood. At this point we do not have surgical services research environmental scientist for the OR since we are on divert for OR cases. As such the patient will be transfused, and we will refer him to outpatient work-up for upper and lower endoscopy. - Past Medical History Respiratory: reports: Asthma, Other (snoring and insomnia. Sleep study Referral September 2018. Ins won't pay so no followup) GI: reports: Other (bloody stool for 15 years) HEENT: reports: Other (Seasonal allergies with his asthma) Psych: reports: Depression, Anxiety - CONSULTS | PROCEDURES Procedures: 1. Chest x-ray without evidence of acute cardiopulmonary process 2. Transfusion of 1 unit of blood - HOSPITAL COURSE Hospital Course: Overall the history was that of chronic rectal bleeding for over a decade now much much worse. Differential diagnosis included upper GI bleed with peptic ulcer disease, diverticular bleed, hemorrhoidal bleeding, inflammatory bowel disease or neoplasm. Patient had no fever, sweats, weight loss, or change in appetite over the last decade. On examination emergency room physician felt there were large cords of internal hemorrhoids present. In any case, we are on surgical divert due to staffing issues. Patient was not able to be seen by general surgery and we are encouraging him to please establish himself with a primary care office that takes his insurance. From there that primary care office can then refer him to gastroenterology for a colonoscopy. We have identified the [facility] in [place] as the facility that we can verify takes [facility] near his home in [place]. We have also asked him to make sure that he establishes care not only for the rectal bleeding but also for the excoriated rash where he is scratching himself quite a bit. He also needs to establish himself to get cognitive behavioral therapy referral with stabilization of his anxiety, depression and panic disorder. A final problem for him is that of insomnia and restless leg syndrome. [place] at [facility]. He could be referred to a clinic that would accept his insurance if he works with a new primary care provider. After 1 unit of blood the patient states he feels so much better and would like to go home. Temperature is 36.8. Pulse is 91. It varies between 71-91. Blood pressure 138/53. Respirations 16. 97% on room air. He is a well-nourished, well-developed white male who looks stated age. He is 5 foot 10 inches tall and weighs 97 kg. In reviewing the medical record, he was 189 pounds several years ago, and has been gradually increasing his weight. There is been no weight loss documented. Neck is supple. No JVD or bruits. Lungs are clear to auscultation and percussion. There is been no evidence of his asthma during this visit. He has a nontender abdomen. Normal bowel sounds. Extremities are without clubbing cyanosis edema. He is ambulating in his room without ataxia, dizziness or imbalance. His skin exam has multiple excoriations where he has been scratching his arms, legs, and lower abdominal wall. He states that he has a "a rash" that comes and goes and it becomes intensely pruritic so he scratches himself and develops a secondary excoriated rash. We - ALLERGIES Allergies/Adverse Reactions: Allergies Allergy/AdvReac Type Severity Reaction Status Date / Time No Known Drug Allergies Allergy Verified 06/26/21 14:07 - MEDICATIONS Home Medications: Ambulatory Orders Medication Instructions Recorded Confirmed Sertraline [Zoloft] 50 mg PO DAILY 04/05/18 06/26/21 Albuterol Sulfate [Albuterol 2 puffs INH QID 06/26/21 06/26/21 Sulfate Hfa] - LABS Result Diagrams: 06/27/21 05:03 06/26/21 14:26
--- NOTE | 2021-06-27 10:55 | Discharge Plan ---
Discharge Plan Problem Reviewed?: Yes Disposition: Home, Self Care Condition: Fair Prescriptions: Ferrous Sulfate [Feosol] 325 mg PO DAILYWM #30 tablet Diet: Regular Activity Restrictions: Activity as Tolerated Shower Restrictions: No Driving Restrictions: No Health Concerns: You presented to our emergency room with shortness of breath and were worried that you were having problems with asthma. In our emergency room we found you not to have an asthma exacerbation but you were severely anemic to 6.9 g of hemoglobin. In 2018 your hemoglobin was 16.6. In September 2019 your hemoglobin was 13.2. See you have been steadily losing blood and we think you have iron deficiency anemia that is making you very short of breath. In addition to that you shared with the emergency room provider that you have been having rectal bleeding. On May 14 you had a week of severe bleeding and called your primary care provider office. However that office no longer took your insurance and referred you to the walk-in clinic. And again that insurance was not accepted. You have been unable to establish yourself with a primary care provider since that time. You also let us know that you have been having rectal bleeding for close to 15 years. It has been painless and without weight loss, abdominal pain, fevers or sweats. Plan of Treatment: 1. You received 1 unit of blood. You feel much better now. I did offer to keep you another 6 hours to recheck your blood work but you felt like you are ready to go home. On admission you were 6.9 g. With 1 unit of blood you went to 8 g of hemoglobin and before discharge were 7.7. 2. Our case management/facility planner was able to find you a clinic to get see you by next Sunday. They are the [facility] in [place]. That is the closest clinic we could find a possible. [facility]. [address] [place] [address]. [phone]. That clinic will need to: A. Establish you for care B. Refer you to gastroenterology for a lower endoscopy and work-up of the rectal bleeding C. Recheck your hemoglobin to make sure it is stable and slowly rising D refer you for a sleep study to evaluate you for what you feel is restless leg syndrome causing insomnia E refer you to a time recorder to find out what is causing you such intense itching that you are scratching yourself and giving you excoriations on your arms, belly, and legs. F. Refer you to a therapist that hopefully will work with you on a regular basis and establish new coping mechanisms for your panic and anxiety through cognitive behavioral therapy and medication. You did ask for Ativan and Valium while you were here but at this time we are declining that since benzodiazepines can be quite addictive and increase your risk of other problems. Care Goals: To have a definitive diagnosis of the cause of rectal bleeding this been going on for 15 years and stop it. To have control of your anxiety and panic disorder. To make the rash on your body go away. And to get a good night sleep by figuring out how to help your restless leg syndrome. Assessment: Patient states he will follow through with the appointment at the [facility] in [place] then make all the other plans fall in place. No Smoking: If you smoke, Please STOP! Call for help.
[2021-06-27 11:50] VITALS: BP 142/71
== END 2021-06-27 12:10 | disposition home or self-care (01) ==
LOC: ED 14:01 → MS2 15:45
PROVIDERS: ADMIT Specialist; ATTEND Specialist
DX: D62 Acute posthemorrhagic anemia (principal); D50.9 Iron deficiency anemia, unspecified; R06.00 Dyspnea, unspecified; F41.8 Other specified anxiety disorders; K62.5 Hemorrhage of anus and rectum; K64.8 Other hemorrhoids; T14.8XXA Other injury of unspecified body region, initial encounter; J45.909 Unspecified asthma, uncomplicated; R21 Rash and other nonspecific skin eruption; Z87.891 Personal history of nicotine dependence; F99 Mental disorder, not otherwise specified; F51.05 Insomnia due to other mental disorder; X58.XXXA Exposure to other specified factors, initial encounter; Z20.822 Contact with and (suspected) exposure to COVID-19
CPT/HCPCS: 0202U; 36415; 36430; 71045; 80053; 83690; 83880; 84484; 85025; 85027; 85379; 86850; 86900; 86901; 86920; 93005; 99284; 99285; A9270; G0378; P9016